=== PATIENT | male | born 1955 | race Caucasian/White ===

== ENCOUNTER 2022-01-25 16:43 | Emergency (ER) | payer MEDICARE, OTHER ==
[~2022-01-25] VITALS: Ht 185.4 cm; Wt 98.9 kg
[~2022-01-25 16:43] MED LIST: ASPIR 8181 MG PO; ASPIR-LOW81 MG PO; ATORVASTATIN CA80 MG PO; CHANTIX0.5 MG PO; CHANTIX1 EACH PO; COREG12.5 MG PO; COREG6.25 MG PO; FLOVENT HFA10.6 GM INH; GABAPENTIN300 MG PO; ISOSORBIDE MON120 MG PO; LIPITOR40 MG PO; NEURONTIN300 MG PO; NITROGLYCERIN0.4 MG SL; NITROMIST4.1 GM TL; NORVASC5 MG PO; PEPCID40 MG PO; VENTOLIN HFA18 GM INH
--- OUTSIDE RECORDS SUMMARY | 2022-01-25 16:50 | XMS ---
PreManage Notification: JENNIFER PRADO Security Medical Dir Events No recent Security Events currently on file CRITERIA MET - [facility] - 2 Visits in 30 Days CARE PROVIDERS There are no care providers on record at this time. Angelia has no Care Guidelines for this patient. Fifi VISIT COUNT (12 MO.) 1 [facility] 1 CHRISTOPHE Farah TOTAL 2 NOTE: Visits indicate total known visits. ED/C VISIT TRACKING (12 MO.) 01/25/2022 16:44 [facility] [place] TYPE: Emergency COMPLAINT: - NOSE BLEED 01/06/2022 12:15 [facility] [place] TYPE: Emergency DIAGNOSES: - Chest Pain INPATIENT VISIT TRACKING (12 MO.) No inpatient visits to display in this time frame [email or web address]
[2022-01-25] MEDS ORDERED: IBUPROFEN200 MG PO (16:56)
== END 2022-01-25 19:16 | disposition home or self-care (01) ==
LOC: ED 16:43
DX: R04.0 Epistaxis (principal); F17.200 Nicotine dependence, unspecified, uncomplicated; Z88.5 Allergy status to narcotic agent; Z91.018 Allergy to other foods; Z91.030 Bee allergy status; Z79.899 Other long term (current) drug therapy; Z79.82 Long term (current) use of aspirin
CPT/HCPCS: 30903; 99283-25

== ENCOUNTER 2022-10-13 10:28 | Emergency (ER) | payer MEDICARE, OTHER ==
[~2022-10-13] VITALS: Ht 185.4 cm; Wt 99.0 kg
[~2022-10-13 10:28] MED LIST changes: +IBUPROFEN200 MG PO
[2022-10-13] MEDS ORDERED: VENTOLIN HFA18 GM INH (11:18)
--- NOTE | 2022-10-15 06:52 | EKG ---
[facility] [address] [facility] [place] [address] Signed Sinus rhythm with occasional premature ventricular complexes Low voltage QRS Nonspecific ST abnormality Abnormal ECG When compared with ECG of 24-DEC-2019 11:25, premature ventricular complexes are now present Confirmed by DILCIA FULLER MD ([id number]) on 10/15/2022 6:52:11 AM Electronically Signed By: DILCIA FULLER MD 10/15/22 0652 PATIENT NAME: JENNIFER PRADO [facility] Electrocardiogram DATE OF : 59 PHYSICIAN: DILCIA FULLER MD REPORT #: [id number] REPORT IS CONFIDENTIAL AND NOT TO BE RELEASED WITHOUT AUTHORIZATION
--- NOTE | 2022-10-15 06:54 | EKG ---
[facility] [address] [facility] [place] [address] Signed Normal sinus rhythm Low voltage QRS Borderline ECG When compared with ECG of 13-OCT-2022 10:36, (Unconfirmed) premature ventricular complexes are no longer present Confirmed by DILCIA FULLER MD ([id number]) on 10/15/2022 6:54:18 AM Electronically Signed By: DILCIA FULLER MD 10/15/22 0654 PATIENT NAME: JENNIFER PRADO [facility] Electrocardiogram DATE OF : 59 PHYSICIAN: DILCIA FULLER MD REPORT #: [id number] REPORT IS CONFIDENTIAL AND NOT TO BE RELEASED WITHOUT AUTHORIZATION
--- NOTE | 2022-10-15 06:58 | EKG ---
[facility] [address] [facility] [place] [address] Signed Sinus rhythm with frequent and consecutive premature ventricular complexes Low voltage QRS Abnormal ECG When compared with ECG of 13-OCT-2022 12:38, (Unconfirmed) premature ventricular complexes are now present Confirmed by DILCIA FULLER MD ([id number]) on 10/15/2022 6:58:54 AM Electronically Signed By: DILCIA FULLER MD 10/15/22 0658 PATIENT NAME: JENNIFER PRADO [facility] Electrocardiogram DATE OF : 59 PHYSICIAN: DILCIA FULLER MD REPORT #: [id number] REPORT IS CONFIDENTIAL AND NOT TO BE RELEASED WITHOUT AUTHORIZATION
== END 2022-10-14 11:00 | disposition short-term general hospital (02) ==
LOC: ED 10:28
DX: I20.0 Unstable angina (principal); I10 Essential (primary) hypertension; J44.9 Chronic obstructive pulmonary disease, unspecified; F17.200 Nicotine dependence, unspecified, uncomplicated; Z88.8 Allergy status to other drugs, medicaments and biological substances; Z91.030 Bee allergy status; Z88.5 Allergy status to narcotic agent; Z91.018 Allergy to other foods; Z79.899 Other long term (current) drug therapy; Z79.82 Long term (current) use of aspirin
CPT/HCPCS: 36415; 71045; 80053; 83735; 84484; 85025; 85730; 93005; 93010; 96374; 99285-25; A9270; J1644; U0003

== ENCOUNTER 2023-03-11 15:36 | Emergency (ER) | payer MEDICARE, OTHER ==
[~2023-03-11] VITALS: Ht 185.4 cm; Wt 96.6 kg
[2023-03-11] MEDS ORDERED: CLOPIDOGREL75 MG PO (16:22)
[2023-03-11] MEDS ORDERED: AMLODIPINE BESYL5 MG PO (16:22)
[2023-03-11] MEDS ORDERED: HYDROCODON-ACE1 EA10 PO (17:37)
[2023-03-11] MEDS ORDERED: CEPHALEXIN500 M1 PO (17:37)
[2023-03-11 18:31] VITALS: BP 129/89
== END 2023-03-11 18:34 | disposition home or self-care (01) ==
LOC: ED 15:36
DX: S56.121A Laceration of flexor muscle, fascia and tendon of right index finger at forearm level, initial encounter (principal); S56.123A Laceration of flexor muscle, fascia and tendon of right middle finger at forearm level, initial encounter; S61.214A Laceration without foreign body of right ring finger without damage to nail, initial encounter; W31.2XXA Contact with powered woodworking and forming machines, initial encounter; I10 Essential (primary) hypertension; J44.9 Chronic obstructive pulmonary disease, unspecified; F17.200 Nicotine dependence, unspecified, uncomplicated; Z91.030 Bee allergy status; Z88.5 Allergy status to narcotic agent; Z91.018 Allergy to other foods; Z79.899 Other long term (current) drug therapy; Z79.82 Long term (current) use of aspirin
CPT/HCPCS: 12004; 29125; 73130; 99283-25; A9270

== ENCOUNTER 2024-09-12 10:39 | Emergency (ER) | payer MEDICARE, OTHER ==
[~2024-09-12] VITALS: Ht 180.3 cm; Wt 97.1 kg
[~2024-09-12 10:39] MED LIST changes: +AMLODIPINE BESYL5 MG PO; +CEPHALEXIN500 M1 PO; +CLARITIN10 M2 PO; +CLOPIDOGREL75 MG PO; +ENTRESTO 24 MG1 EACH PO; +HYDROCODON-ACE1 EA10 PO; +JARDIANCE10 MG PO; +METOPROLOL SUCC25 MG PO; +NEURONTIN100 MG PO; +ZITHROMAX250 MG PO
[2024-09-12] MEDS ORDERED: ISOSORBIDE MONO30 MG PO (12:31)
[2024-09-12] MEDS ORDERED: BACTRIM DS TAB1 EACH PO (14:22)
[2024-09-12 14:26] VITALS: BP 127/78
== END 2024-09-12 14:28 | disposition home or self-care (01) ==
LOC: ED 10:39
DX: L03.012 Cellulitis of left finger (principal); I10 Essential (primary) hypertension; J44.9 Chronic obstructive pulmonary disease, unspecified; F17.200 Nicotine dependence, unspecified, uncomplicated; Z91.030 Bee allergy status; Z88.5 Allergy status to narcotic agent; Z91.018 Allergy to other foods; Z79.84 Long term (current) use of oral hypoglycemic drugs; Z79.82 Long term (current) use of aspirin; Z79.899 Other long term (current) drug therapy
CPT/HCPCS: 73140; 99283

== ENCOUNTER 2025-02-10 07:59 | Day surgery (SDC) | payer MEDICARE, OTHER ==
[~2025-02-10] VITALS: Ht 210.8 cm; Wt 95.5 kg
[~2025-02-10 07:59] MED LIST changes: +ACETAMINOPHEN500 MG PO; +ADVAIR 250-501 EACH INH; +ANORO ELLIPTA1 EACH INH; +BACTRIM DS TAB1 EACH PO; +CEFAZOLIN SODIUM 2 GM/20 ML SYR IV SCH; +IBLOOD GLUCOSE TEST STRIP 1 EA TEST VI PRN; +ISOSORBIDE MONO30 MG PO; +LACTATED RINGER'S 1,000 ML IV SCH; +LIDOCAINE HCL 1% 5 ML SDV INJ ONE
[2025-02-10 08:23] VITALS: BP 141/77
--- NOTE | 2025-02-10 08:52 | NUR ---
STATES NOT DIABETIC, ON MEDICATION NOT SURE OF ALL THEM. REVIEWED. HAS DR BURGOS WHILE PT GONE.
--- NOTE | 2025-02-10 09:42 | NUR ---
comfortable, denies any needs. updated.
[2025-02-10] MEDS ORDERED: BUPIVACAINE HCL 0.25% 50 ML MDV ONE (11:13)
--- NOTE | 2025-02-10 11:34 | NUR ---
1120 sits up in bed says i want out of here. get this stuff off me. explained dr told him about delay. so sorry he has to wait this long. o r charge says about 40 more minutes. tells him hell have to pay bill so he needs to settle down. she says hes always want to leave hospital each time hes been in.
[2025-02-10] MEDS ORDERED: LIDOCAINE HCL 0.5% 50 ML SDV ONE (12:12)
[2025-02-10] MEDS ORDERED: propofoL 200 MG/20 ML VIAL ONE (12:12)
[2025-02-10] MEDS ORDERED: MIDAZOLAM HCL 2 MG/2 ML VIAL ONE (12:12)
--- NOTE | 2025-02-10 12:19 | NUR ---
1200 HAS AGREED TO STAY.1210 REGISTERED RESPIRATORY TECHNICIAN IN TO TALK WITH PT. 1220 UP TO BR. RETURNED TO [facility].
[2025-02-10] MEDS ORDERED: HYDROCODONE/ACETA 5/325 TAB PO PRN (12:30)
[2025-02-10] MEDS ORDERED: HYDROCODON-ACE1 EA10 PO (13:03)
[2025-02-10 13:32] VITALS: BP 103/67
--- NOTE | 2025-02-10 14:05 | NUR ---
02/10/25 1405 Eirka Garnica 1301 PT ARRIVED IN PACU SLEEPY WITH R HAND ELEVATED ON PILLOWS. 1305 PT COUGHING UP SECRETIONS AND SUCTIONED BY RN. 1315 PT AWAKE AND SITTING UP IN BED TALKING TO STAFF. SIPPING ON COFFEE. 1330 GETTING DRESSED WITH STAND BY ASSIST. 1340 DC INSTRUCTIONS GIVEN. ALL QUESTIONS ANSWERED. PT REFUSED SLING WHEN OFFERED. 1345 LEFT VIA W/C.
--- NOTE | 2025-02-11 16:39 | OR ---
[facility] [address] [place], [place] [address] Signed DATE OF OPERATION: 02/10/2025 SURGEON: Krysta Amado MD PREOPERATIVE DIAGNOSIS: Mucous cyst, right middle finger. POSTOPERATIVE DIAGNOSIS: Epidermal inclusion cyst, right middle finger. PROCEDURE PERFORMED: Excision of cyst, right middle finger. GASOLINE CATALYST OPERATOR: None. ANESTHESIA: Trinity block. TOURNIQUET TIME: 20 minutes. BRIEF HISTORY: Colin is a 69-year-old male with an enlarging mass on the dorsum of the PIP joint right middle finger. This was painful and bothersome to him, he wished to have it excised. Risks, benefits, and alternatives were discussed. He understood and wished to proceed. DESCRIPTION OF PROCEDURE: Once consent was obtained, he was taken to the operating room. After adequate anesthesia he was left on the surgery bed and a hand table was brought in. The arm was prepped and draped in a standard sterile fashion after the Trinity block was established. The large dorsal nodule was then incised longitudinally. Careful dissection around the cyst was undertaken. It was elevated off the tendon. There was no connection with the joint underlying. Upon opening it, it was filled with an oily mucinous component that was more consistent with an epidermal inclusion cyst. The wound was copiously irrigated and closed with 3-0 nylon, dressed with bacitracin, Adaptic, 4 x 8 and gauze with tube gauze. The patient was awakened, taken to recovery room in satisfactory condition. All sponge, needle, and instrument counts were correct. Electronically Signed By: KRYSTA AMADO MD 02/11/25 1077 PATIENT NAME: COLIN PRADO OPERATIVE REPORT DATE OF : 59 REPORT #: [id number] PHYSICIAN: KRYSTA AMADO MD PCP: NICOLE SOW MD REPORT IS CONFIDENTIAL AND NOT TO BE RELEASED WITHOUT AUTHORIZATION [address] [place], [place] [address] Signed Krysta Amado MD /[facility] /[id number] Copies: ~ Electronically Signed By: KRYSTA AMADO MD 02/11/25 1639 PATIENT NAME: COLIN PRADO OPERATIVE REPORT DATE OF : 59 REPORT #: [id number] PHYSICIAN: KRYSTA AMADO MD PCP: NICOLE SOW MD REPORT IS CONFIDENTIAL AND NOT TO BE RELEASED WITHOUT AUTHORIZATION
== END 2025-02-10 13:45 | disposition home or self-care (01) ==
LOC: DS 07:59
PROVIDERS: ATTEND Specialist
PROC: 0J9J0ZZ Drainage of Right Hand Subcutaneous Tissue and Fascia, Open Approach (ICD-10-PCS; principal; 2025-02-10 10:30)
DX: L72.0 Epidermal cyst (principal); M19.041 Primary osteoarthritis, right hand; I10 Essential (primary) hypertension; E78.00 Pure hypercholesterolemia, unspecified; I25.10 Atherosclerotic heart disease of native coronary artery without angina pectoris; G40.909 Epilepsy, unspecified, not intractable, without status epilepticus; J43.2 Centrilobular emphysema; F17.200 Nicotine dependence, unspecified, uncomplicated; Z79.899 Other long term (current) drug therapy; Z88.5 Allergy status to narcotic agent; Z95.5 Presence of coronary angioplasty implant and graft
CPT/HCPCS: 00400; J0690; J2250; J2704; J7121

== ENCOUNTER 2025-08-09 00:56 | Emergency (ER) | payer MEDICARE, OTHER ==
[~2025-08-09] VITALS: Ht 185.4 cm; Wt 99.8 kg
[~2025-08-09 00:56] MED LIST changes: -CEFAZOLIN SODIUM 2 GM/20 ML SYR IV SCH; -IBLOOD GLUCOSE TEST STRIP 1 EA TEST VI PRN; -LACTATED RINGER'S 1,000 ML IV SCH; -LIDOCAINE HCL 1% 5 ML SDV INJ ONE
[2025-08-09] MEDS ORDERED: ASPIRIN 81 MG CHEW PO ONE (01:15)
[2025-08-09] MEDS ORDERED: NITROGLYCERIN PACKET TOP ONE (01:15)
[2025-08-09 01:17] LABS: BASOPHILS 0.2 % (0.2-1.2); EOSINOPHILS 2.6 % (0.8-7.0); LYMPHOCYTES 24.3 % (21.8-53.1); MCH 31.6 PG (25.7-32.2); MCHC 32.8 g/dL (32.3-36.5); MCV 96.3 fL (79.0-92.2); MONOCYTES 11.0 % (5.3-12.2); NEUTROPHILS 61.5 % (34.0-67.9); RBC 4.84 M/uL (4.63-6.08)
[2025-08-09 01:28] LABS: INR 1.02 (0.80-1.30); PROTIME 12.7 Sec (11.2-14.2)
[2025-08-09 01:42] LABS: ALT (SGPT) 37.0 U/L (14-59); AST (SGOT) 23.0 U/L (15-37); GLOMERULAR FILTRATION RATE,EST 94.0 mL/min (>60); PROTEIN, TOTAL 6.9 g/dL (6.4-8.2); UREA NITROGEN 13.0 mg/dL (7-18)
[2025-08-09] MEDS ORDERED: CYCLOBENZAPRINE10 MG PO (01:48)
[2025-08-09] MEDS ORDERED: CYCLOBENZAPRINE HCL 10 MG HOME.PACK PO ONE (02:00)
[2025-08-09 02:10] VITALS: BP 119/85
--- NOTE | 2025-08-09 12:33 | EKG ---
[facility] [address] [facility] [place], [place] [address] Signed Sinus bradycardia with occasional premature ventricular complexes Low voltage QRS Borderline ECG When compared with ECG of 21-APR-2024 09:19, No significant change was found Confirmed by RUI BALBUENA MD ([id number]) on 08/09/2025 12:32:58 PM Electronically Signed By: RUI BALBUENA 08/09/25 1233 PATIENT NAME: JENNIFER PRADO [facility] Electrocardiogram DATE OF : 59 PHYSICIAN: RUI BALBUENA REPORT #: [id number] REPORT IS CONFIDENTIAL AND NOT TO BE RELEASED WITHOUT AUTHORIZATION
== END 2025-08-09 02:05 | disposition home or self-care (01) ==
LOC: ED 00:56
PROVIDERS: Family Medicine
DX: R07.89 Other chest pain (principal); I10 Essential (primary) hypertension; J44.9 Chronic obstructive pulmonary disease, unspecified; F17.200 Nicotine dependence, unspecified, uncomplicated; Z95.5 Presence of coronary angioplasty implant and graft; Z95.1 Presence of aortocoronary bypass graft; Z88.5 Allergy status to narcotic agent; Z91.018 Allergy to other foods; Z91.030 Bee allergy status; Z79.84 Long term (current) use of oral hypoglycemic drugs; Z79.51 Long term (current) use of inhaled steroids; Z79.82 Long term (current) use of aspirin; Z79.899 Other long term (current) drug therapy
CPT/HCPCS: 36415; 71045; 80053; 83735; 83880; 84484; 85025; 85610; 93005; 93010; 99285-25; A9270